=== PATIENT | male | born 1990 | race Caucasian/White ===

== ENCOUNTER 2020-03-30 08:18 | Emergency (ER) | payer OTHER ==
[~2020-03-30] VITALS: Ht 177.8 cm; Wt 86.0 kg
[2020-03-30 08:21] VITALS: BP 138/84
[2020-03-30] MEDS ORDERED: TRIA15CR61 TOP (08:38)
== END 2020-03-30 08:54 | disposition home or self-care (01) ==
LOC: ER 08:19
DX: L20.89 Other atopic dermatitis (principal)
CPT/HCPCS: 99283

== ENCOUNTER 2020-06-27 08:34 | Emergency (ER) | payer OTHER ==
[~2020-06-27] VITALS: Ht 177.8 cm; Wt 81.3 kg
[2020-06-27 08:35] VITALS: BP 126/76
== END 2020-06-27 09:17 | disposition home or self-care (01) ==
LOC: ER 08:34
DX: L74.0 Miliaria rubra (principal); R21 Rash and other nonspecific skin eruption
CPT/HCPCS: 99282

== ENCOUNTER 2021-02-03 09:28 | Emergency (ER) | payer OTHER ==
[~2021-02-03] VITALS: Ht 177.8 cm; Wt 81.8 kg
[2021-02-03 11:08] VITALS: BP 147/78
== END 2021-02-03 11:25 | disposition home or self-care (01) ==
LOC: ER 09:28
DX: R50.9 Fever, unspecified (principal); Z20.822 Contact with and (suspected) exposure to COVID-19; R51.9 Headache, unspecified
CPT/HCPCS: 87635; 99283; C9803

== ENCOUNTER 2021-04-26 21:03 | Emergency (ER) | payer MEDICAID, OTHER ==
[~2021-04-26] VITALS: Ht 177.8 cm; Wt 80.5 kg
[2021-04-26 21:15] VITALS: BP 121/71
[2021-04-26] MEDS ORDERED: PRED20TA PO (22:53)
== END 2021-04-26 23:03 | disposition home or self-care (01) ==
LOC: ER 21:04
DX: L25.9 Unspecified contact dermatitis, unspecified cause (principal); R21 Rash and other nonspecific skin eruption; Z88.8 Allergy status to other drugs, medicaments and biological substances; Z79.899 Other long term (current) drug therapy
CPT/HCPCS: 99283

== ENCOUNTER 2022-02-14 12:03 | Emergency (ER) | payer MEDICAID ==
[~2022-02-14] VITALS: Ht 177.8 cm; Wt 80.0 kg
[2022-02-14 12:51] VITALS: BP_SYST 135
[2022-02-14] MEDS ORDERED: CLIN-97 PO (13:24)
[2022-02-14] MEDS ORDERED: HYDR-3965 PO (13:24)
== END 2022-02-14 13:46 | disposition home or self-care (01) ==
LOC: ER 12:03
DX: K05.20 Aggressive periodontitis, unspecified (principal); Z91.018 Allergy to other foods
CPT/HCPCS: 99283